=== PATIENT | male | born 1940 | race Caucasian/White ===

== ENCOUNTER → 2017-02-24 | Day surgery (SDC) | payer MEDICARE ==
[~2017-02-24] VITALS: Ht 179.1 cm; Wt 77.8 kg
[2017-02-24] VITALS (7 sets, daily range): BP systolic 130–142; BP diastolic 70–83; PULSE 55–79; RESP 12–18; O2SAT 88–96
[~2017-02-24] MED LIST: ASPI325T32 PO; Albuterol 2.5 mg/3 mL Inhalation Solution NEB PRN; Atropine 0.4 mg/mL Inj IVPUSH PRN; CHOL400T PO; CeFAZolin 2 Gm/50 mL D5W IV Premix IV ONE; CeFAZolin Inj 2 GM in IV Premix 1 EACH IV ONE; Dexamethasone 4 mg/mL Inj IVPUSH PRN; EPHEDrine Sulfate 50 mg/mL Inj IVPUSH PRN; Glycopyrrolate 0.2 MG/ML 1mL Inj ONE; HYDROmorphone 1 mg/mL Inj IVPUSH PRN; Labetalol 5 mg/mL 20 mL Inj IV PRN; Lactated Ringer's 1,000 ML IV ONE; Lactated Ringer's 1,000 ML IV SCH; Lactated Ringer's 500 ML IV PRN; Lidocaine 1%-Epi 1:100,000 20 mL Inj INJ ONE; MetoCLOpramide 5 mg/mL 2 mL Inj IVPUSH PRN; Neostigmine 1 mg/mL 10 mL Inj ONE; OMEP20CA11 PO; Ondansetron 2 mg/mL 2 mL Inj IVPUSH PRN; Ondansetron 2 mg/mL 2 mL Inj ONE; PAPA1TAB10 PO; POLY17PO6 PO; Phenylephrine 10,000 mCg/mL Inj IVPUSH PRN; Phenylephrine/NS 100 mCg/mL 10 mL Syringe IVPUSH ONE; Propofol 10,000 mCg/mL 20 mL Inj ONE; TRAM-14 PO; TRIA60LO3 TOP; VIT1TABL83 PO; VITA-230 PO; fentaNYL-PF 50 mCg/mL 2 mL Inj IVPUSH PRN; fentaNYL-PF 50 mCg/mL 2 mL Inj ONE; hydrALAZINE 20 mg/mL Inj IVPUSH PRN; oxyCODONE-Acetamin 5-325 mg Tablet PO PRN; vitamin c
[2017-02-24] MEDS: Lactated Ringer's 1,000 ML IV SCH ×2 (06:58→08:19)
--- NOTE | 2017-02-24 08:18 | PCM.HPANE ---
Patient Data Surgeon Admitting Provider: Attending Provider:Alex Chiu DO Primary Care Physician:Zoey Saleh PA-C Other Provider:Bibi Alexingham Anesthesia Reason for Visit Right Rotator Cuff Tear, Impingement,Biceps Tendon Ht/WT & BMI Height (Feet): 5 Height (Inches): 10.50 Weight (Kilograms): 77.800 Body Mass Index 24.00 Allergies Coded Allergies: Grass (Verified Allergy, Intermediate, 02/07/17) green pepper (Verified Allergy, Intermediate, gi upset, 02/07/17) house dust (Verified Allergy, Intermediate, 02/07/17) Past Anesthesia History Anesthesia History: Denies:: Abnormal Airway, Anesthesia Reactions, Difficult Intubation, Fam Anesthesia Reaction, Fam Malignant Hypertherm, Malignant Hyperthermia Diabetes History Hx Diabetes?: No MRSA MRSA: No Medications Blood Thinner: Aspirin Home Meds Incl Beta Lam: No Reported Medications Vit B Comp/C/FA/Iron/Vit E (Vitamin B Complex Tablet)1 Each Tablet1 Each PO DAILY 07/11/15 Omeprazole 20 Mg Capsule.dr20 Mg PO DAILY Ref 0 07/11/15 Cholecalciferol (Vitamin D3) (Vitamin D3)400 Unit [id number] Unit PO DAILY 07/11/15 [vitamin c] No Conflict CheckUnknown Dose DAILY 07/11/15 Vitamin A Palmitate (Vitamin A)10,000 Unit Nsfeepw87,000 Unit PO QW 30 Days Ref 0 11/27/14 Tramadol (Ultram)50 Mg [id number] Mg PO BID PRN For Pain Ref 0 11/27/14 Triamcinolone Acetonide 60 Ml Lotion1 Applic TOP BID #60 ML Ref 0 11/27/14 Papaya (Papaya Enzyme)1 Each Tablet1 Each PO DAILY 11/27/14 Polyethylene Glycol 3350 (Miralax)17 Gm Powd.pack17 Gm PO DAILY 11/27/14 Aspirin 325 Mg Tablet.dr325 Mg PO DAILY #1 BOTTLE Ref 0 11/27/14 History History of ENT Problems?: Yes HEENT History: Positive for:: Hearing Problem (mild hearing loss no hearing aids) Sinus Problem (allergy related) 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) Denies:: Abnormal Airway Cataracts Difficult Intubation Dysphagia Glaucoma Denture Type: None Teeth Condition: Broken Teeth Hx of Heart Problems?: No Cardiovascular History: Positive for:: Abdominal Aortic Aneurism (AAA being monitored, stable) Edema (lt leg) Peripheral Vascular (vericose veins legs) Denies:: AICD Atrial Fibrillation Cardiac Surgery Chest Pain Congestive Heart Failure Coronary Artery Disease Heart Murmur Hypertension Irregular Heartbeat Pacemaker Rheumatic Fever Thrombophlebitis Valvular Heart Disease Hx of Respiratory Problem?: No Respiratory History: Positive for:: Dyspnea Emphysema Denies:: Asthma COPD Chest Surgery Cough Hemoptysis Pneumonia Pulmonary Embolism Tuberculosis Use of C-PAP Machine Use of Inhalers / NEBS Hx Neurologic Problems?: No Neurological History: Positive for:: Dizziness (while walking and or standing) 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 (eczema) Denies:: Pressure Ulcers Hx Musculoskeletal Problems?: No Musculoskeletal History: Positive for:: Osteoarthritis Denies:: Joint Replacement Systemic Lupus Hx of Psycho/Social Problems?: No Psycho Social History: Denies:: Anxiety Hx Depression Hx Surgeries?: Yes (knee arthroscopy, abdominal hernia, TONSILLECTOMY) Hx Any Other Health Problems?: Yes Other History: Positive for:: Cancer (BCC right chest) Hospitalization Denies:: Endocrine Disease Thyroid Disease History Blood Transfusions: Positive for:: Accept Blood Products? Denies:: Blood Transfusions Hx Diabetes: No Hx Alcohol Use: NoHx Substance Use: No Smoking Status: Former Smoker Have You Smoked inLast 12 mo: No Stop/Bang Treated for Sleep Apnea?: No Do You Have a CPAP Machine?: No S-Snoring: Do You Snore Loudly: No T-Tired: feel tired, fatigued: Yes O-Obsered: Observed not breath: No P-Blood Pressure: treated: No B- Body Mass Index > 35 kg/m2: No A- Age over 50: Yes N- Neck Large Circumference: No G- Gender Male: Yes CELINE Total Score: 3 CELINE Risk Assessment: High Risk, =/>3 Yes CELINE Category 4 OutPt Procedure: Yes Risk Assessment Category Category 1A: Patient has history of documented sleep apnea, and HAS NOT received any narcotic, sedative or anesthesia administration during this stay. Category 1B: Patient has history of documented sleep apnea, and HAS received any narcotic , sedative or anesthesia administration during this stay Category 2: Patient has SUSPECTED Obstructive Sleep Apnea, and HAS received any narcotic , sedative or anesthesia administration during this stay. Category 3: Patient has SUSPECTED Obstructive Sleep Apnea and HAS NOT received narcotic, sedative or anesthesia administration during this stay. Category 4: Outpatient in Procedural Areas with known sleep apnea or who screen positive for High Risk via the STOP/BANG questionnaire. Exam Exam Vital Signs Vital Signs Date Time Temp Pulse Resp B/P Pulse Ox O2 Delivery O2 Flow Rate FiO2 02/24/17 06:37 36 57 14 134/83 94 Room Air General Appearance: Alert, Oriented X3, Cooperative HEENT/AIRWAY: MP 2, Neck Movement (OK) Lungs: Clear to Auscultation, Normal Air Movement Heart: Regular Rate/Rhythm, Normal S1, Normal S2 Meds/Labs/Diagnostics Admission Meds Current Medications Lactated Ringer's (Lr) 1,000 ml @ 120 mls/hr Q8H20M IV Last administered on t 06:58; Start 02/24/17 at 05:00; Stop 02/24/17 at 13:19 Plan Impression Patient chart reviewed, patient interviewed and anesthestic plan with risks, benefits, and alternatives discussed, and informed consent obtained. NPO per Anesth. Guidelines: Yes ASA Physical Status: ASA3 Severe Disease Anesthetic Support Modalities: [place] Scope Anesthetic Plan: GA, Regional Block Bene/Risks/Altern/Consents: Yes HP Complete Prior to Induction: Yes Willard Chase MD Feb 24, 2017 08:18
--- NOTE | 2017-02-24 11:40 | PCM.ANEP1 ---
Post Anesthesia PACU Phase 1 Assessment Date of Service: Feb 24, 2017 Vital Signs Vital Signs Date Time Temp Pulse Resp B/P Pulse Ox O2 Delivery O2 Flow Rate FiO2 02/24/17 10:50 60 18 130/78 96 Nasal Cannula 2 02/24/17 10:40 66 17 130/70 94 Nasal Cannula 2 02/24/17 10:35 76 15 142/70 88 Room Air 02/24/17 10:30 36.3 79 12 137/81 96 Simple Mask 02/24/17 06:37 36 57 14 134/83 94 Room Air Anesthetic Administered: GA, Regional Block Level of Alertness: Awake, talking HAM's with Equal Strength: No Pain: No Nausea or Vomiting: No CV Function & Hydration Stable: Yes Airway Device: Oxygen Delivery: Room Air Lungs: Normal Air Movement Dermatome Level: Full Sensation PACU Phase 2 Assessment Complications: No Follow up Care: N/A Patient Instructions Provided: N/A Willard Chase MD Feb 24, 2017 11:40
--- NOTE | 2017-02-25 11:36 | OP ---
[address] [address] OPERATIVE REPORT PATIENT: SHAINA LUNDBERG : 1940 MR#: [id number] ADMIT: 02/24/2017 JOB ID: [id number] DATE OF SURGERY: 02/24/2017 PREOPERATIVE DIAGNOSIS(ES): 1. Right shoulder rotator cuff tear. 2. Right shoulder impingement syndrome. 3. Right shoulder acromioclavicular arthritis. 4. Right shoulder bicipital tendinopathy. POSTOPERATIVE DIAGNOSIS(ES): 1. Right shoulder rotator cuff tear. 2. Right shoulder impingement syndrome. 3. Right shoulder acromioclavicular arthritis. 4. Right shoulder type 1 SLAP tear. SURGERIES: 1. Right shoulder arthroscopy with rotator cuff repair. 2. Right shoulder arthroscopy with subacromial decompression and acromioplasty. 3. Right shoulder arthroscopy with distal clavicle excision. 4. Right shoulder arthroscopy with limited debridement of the labrum. SURGEON: Alex Chiu D.O. ASSISTANTS: Deniz Rodgers PA-C The assistance, Deniz Rodgers PA-C was necessary for help with manipulation of intra-articular equipment, including the camera and for primary closure at the conclusion of the case. ANESTHESIA: General. HISTORY: The patient is a 76-year-old male presents with a four month history of right shoulder pain and weakness. He had failed conservative treatment and an MRI was obtained that did demonstrate a large retracted rotator cuff tear involving the majority of the supraspinatus and a portion of the infraspinatus. He also demonstrated clinical signs of bicipital tendinopathy as well as impingement and further radiographic signs of acromioclavicular arthritis. With the large tear and minimal atrophy appreciated to the rotator cuff muscles, I discussed with the patient the risks, benefits, alternatives and indications to proceed with a right shoulder arthroscopy with rotator cuff repair versus debridement, possible open biceps tenodesis, subacromial decompression and distal clavicle excision. He understood the risks include, but are not limited to, neurovascular injury, tendon injury, infection, failure of fixation, stiffness, persistent pain, all of which may require further intervention. The patient had all questions answered. Consent was signed and placed on the chart. PROCEDURE IN DETAIL: The patient was brought to the operative suite and placed supine on the operating room. Surgical time-out performed. Everyone in the room was in agreement. After appropriate anesthesia was obtained, the patient was placed into the beach chair position with all prominences well padded and the right upper extremity was then prepped and draped in a sterile fashion. The right arm was then placed into an arthroscopic arm gupta. A standard posterior viewing portal was developed in the typical fashion. A camera was introduced into the glenohumeral joint. On gross observation, there was significant hypertrophic synovium. The biceps was found to be intact without any evidence of tendinopathy. There was some fraying of the superior aspect of the labrum. The undersurface demonstrated a large rotator cuff tear through the supraspinatus and a portion of the infraspinatus. An anterior working portal was developed in a typical fashion, first utilizing an 18-gauge spinal needle to determine the appropriate position for the working portal. Working portal was then created and shaver introduced to perform a debridement of the hypertrophic synovium as well as the superior aspect of the labrum. The labrum was further probed and found to be stable without any detachment from the glenoid rim. The biceps was further brought through the joint and again was found to be without any tendinopathy. The camera was then brought into the subacromial space. There was significant hypertrophic bursa. A lateral working portal was created to perform an extensive bursectomy, which revealed the underlying dorsal surface of the rotator cuff. The large rotator cuff tear was identified and a grasper used to attempt to mobilize the inferior insertion to the greater tuberosity. There was quite a bit of retraction and scarring and mobility was limited. Thus releases were made utilizing various liberating devices. This allowed for further mobilization of the rotator cuff. The footprint at the greater tuberosity was then prepared utilizing a shaver and then a bur and the tuberosity slightly medialized towards the articular surface retraction to the rotator cuff tear. Next two 4.5 mm Arthrex corkscrew anchors were applied at the prepared tuberosity footprint just lateral to the articular surface of the humeral head. The four limbs from each anchor were then shuttled through the rotator cuff in the anterior-posterior direction and then tied from posterior to anterior with the shoulder in a slightly abducted position. This allowed for excellent single row repair. Attention was then turned towards the undersurface of the acromion. A surface electrocautery wand was used to further delineate the undersurface of the acromion that did demonstrate some under hooking of osteophytes. A bur next was used to perform the acromioplasty. Next the bur was brought through an anterior portal to perform a distal clavicle excision of approximately 8-10 mm in width. The arthroscopic equipment was then removed from the joint and the portals closed with nylon suture. The patient was then placed in a bulky soft dressing and into a shoulder immobilizer. ESTIMATED BLOOD LOSS: 25 cc. COMPLICATIONS: None. DISPOSITION: The patient tolerated the procedure well. Anesthesia was reversed. The patient was transferred back to recovery. POSTOPERATIVE PLAN: The patient will followup in the office in two weeks for suture removal. We will start him on some gentle elbow range of motion exercises at that time but it will be six weeks postop prior to initiating any range of motion of the shoulder with therapy secondary to the size of the tear.
== END | disposition home or self-care (01) ==
LOC: SAS 06:07
PROVIDERS: ATTEND Orthopaedic Surgery
DX: M75.121 Complete rotator cuff tear or rupture of right shoulder, not specified as traumatic (principal); M19.011 Primary osteoarthritis, right shoulder; M75.41 Impingement syndrome of right shoulder; M67.921 Unspecified disorder of synovium and tendon, right upper arm; K21.9 Gastro-esophageal reflux disease without esophagitis; I71.4 Abdominal aortic aneurysm, without rupture; J44.9 Chronic obstructive pulmonary disease, unspecified; Z79.82 Long term (current) use of aspirin; Z79.51 Long term (current) use of inhaled steroids
CPT/HCPCS: 29824; 29826; 29827; 76942; C1713; J0690; J2250; J2370; J2405; J2704; J2710; J3010; J7120